=== PATIENT | male | born 1955 | race Caucasian/White ===

== ENCOUNTER → 2024-05-08 14:33 | Outpatient (REF) | payer MEDICARE, OTHER, SELFPAY | LOC: HWRAD 14:33 | DX: J18.9 Pneumonia, unspecified organism (principal); R06.09 Other forms of dyspnea; R06.2 Wheezing | CPT/HCPCS: 71046 ==

== ENCOUNTER → 2024-08-16 07:06 | Outpatient (REF) | payer MEDICARE, OTHER, SELFPAY ==
[2024-08-16 09:46] LABS: ALT (SGPT) 22 U/L (0-50); AST (SGOT) 23 U/L (17-59); Albumin 4.3 g/dl (3.5-5.0); Alkaline Phosphatase 64 U/L (38-126); Blood Urea Nitrogen 22 mg/dl (9-20); Calcium 9.2 mg/dl (8.4-10.2); Carbon Dioxide 29 mmol/L (22-30); Chloride 109 mmol/L (98-107); Glucose 106 mg/dl (70-99); HDL Cholesterol 40 mg/dl; LDL Cholesterol, Calculated 122 mg/dl; Potassium 4.5 mmol/L (3.5-5.1); Sodium 142 mmol/L (135-145); Total Bilirubin 0.6 mg/dl (0.2-1.3); Total Cholesterol 197 mg/dl (50-199); Total Protein 7.9 g/dl (6.3-8.2); Triglyceride 176 mg/dl (10-149); Very Low Density Lipoprotein 35 mg/dl (0-30); eGFR > 60.00
[2024-08-16 10:11] LABS: PSA, Total - Screen 2.32 ng/ml (0.0-4.0)
== END ==
LOC: HWLAB 07:06
DX: Z12.5 Encounter for screening for malignant neoplasm of prostate (principal); E78.2 Mixed hyperlipidemia; F41.9 Anxiety disorder, unspecified
CPT/HCPCS: 36415; 80053; 80061; G0103

== ENCOUNTER → 2024-09-28 09:29 | Outpatient (REF) | payer MEDICARE, OTHER, SELFPAY ==
[2024-09-28 13:28] LABS: ALT (SGPT) 21 U/L (0-50); AST (SGOT) 21 U/L (17-59); Albumin 4.2 g/dl (3.5-5.0); Alkaline Phosphatase 65 U/L (38-126); Blood Urea Nitrogen 21 mg/dl (9-20); Calcium 9.2 mg/dl (8.4-10.2); Carbon Dioxide 27 mmol/L (22-30); Chloride 106 mmol/L (98-107); Glucose 91 mg/dl (70-99); Iron 150 ug/dl (49-181); Potassium 4.4 mmol/L (3.5-5.1); Sodium 139 mmol/L (135-145); Total Protein 7.8 g/dl (6.3-8.2); eGFR > 60.00
[2024-09-28 13:37] LABS: Total Iron Binding Capacity 284 ug/dl (261-462)
[2024-09-28 13:43] LABS: Hematocrit 41.3 % (39.0-52.0); Hemoglobin 13.8 g/dL (13.0-18.0); Mean Corp Hgb Conc. 33.4 g/dL (33.0-37.0); Mean Corpuscular Volume 86.6 fL (80.0-94.0); Red Cell Dist. Width 13.2 % (11.5-14.5)
[2024-09-28 13:44] LABS: Platelet Count 196 10^3/uL (130-400)
[2024-09-28 14:01] LABS: C-Reactive Protein < 5.00 mg/L (0.0-10.00)
[2024-09-28 14:03] LABS: Nucleated Red Blood Cells % 0 % (-)
[2024-09-28 14:24] LABS: Vitamin D, 25-OH*** 76.9 ng/mL (30-80)
[2024-09-28 14:25] LABS: Glycohemoglobin (HgbA1c) 5.3 % (4.0-5.6)
[2024-09-28 14:40] LABS: Ferritin 55.9 ng/ml (17.9-464.0)
[2024-09-28 15:12] LABS: Folate 16.2 ng/ml (2.76-20); Vitamin B12 762 pg/ml (239-931)
[2024-10-01 12:06] LABS: Lyme Antibody Screen, EIA Negative (Negative)
[2024-10-01 23:50] LABS: EBV-EA (D) Ab IgG >150.0 U/mL (<=8.9); EBV-NA IgG 368.0 U/mL (<=17.9); EBV-VCA IgG Antibodies >750.0 U/mL (<=17.9); EBV-VCA IgM Antibodies <10.0 U/mL (<=35.9)
== END ==
LOC: HWLAB 09:29
DX: R53.82 Chronic fatigue, unspecified (principal); R73.09 Other abnormal glucose; Z79.899 Other long term (current) drug therapy
CPT/HCPCS: 36415; 80053; 82306; 82607; 82728; 82746; 83036; 83540; 83550; 84270; 84402; 84403; 84443; 85025; 85652; 86140; 86308; 86618; 86663; 86664; 86665

== ENCOUNTER → 2024-10-09 12:55 | Outpatient (REF) | payer MEDICARE, OTHER, SELFPAY | LOC: RCS 12:55 | DX: R42 Dizziness and giddiness (principal) | CPT/HCPCS: 93225; 93226 ==

== ENCOUNTER → 2024-10-11 12:25 | Outpatient (REF) | payer MEDICARE, OTHER, SELFPAY | LOC: RCS 12:25 | DX: R42 Dizziness and giddiness (principal); R00.1 Bradycardia, unspecified; R06.09 Other forms of dyspnea | CPT/HCPCS: 93017 ==